=== PATIENT | male | born 1960 | race Caucasian/White ===

== ENCOUNTER 2022-09-24 17:14 | Emergency (ER) | payer MEDICAID, OTHER ==
[~2022-09-24] VITALS: Ht 165.1 cm; Wt 73.0 kg
[2022-09-24 17:31] VITALS: BP 126/78; PULSE 105; RESP 16; TEMP 99.3; O2SAT 92
[2022-09-24 19:36] LABS: BASOPHILS % 1.2 % (0.0-2.0); EOSINOPHILS % 0.5 % (0.0-5.0); HEMATOCRIT. 44.4 % (42.0-52.0); HEMOGLOBIN. 14.8 g/dL (14.0-18.0); LYMPHOCYTES % 27.4 % (20.0-50.0); MEAN CORPUSCULAR HEMOGLOBIN 31.8 pg (28.0-32.0); MEAN CORPUSCULAR VOLUME 95.1 fL (80.0-94.0); MEAN PLATELET VOLUME 9.1 fl (7.4-10.4); NEUTROPHILS % 61.9 % (40.0-76.0); PLATELET 208 x1000/uL (130-400); RED BLOOD CELL COUNT 4.67 mill/uL (4.7-6.1); RED CELL DISTRIBUTION WIDTH 15.7 % (11.6-14.6)
[2022-09-24 19:42] LABS: CHLORIDE 98 mEq/L (98-107)
[2022-09-24 20:52] LABS: ETHANOL BLOOD 300 mg/dL (-10)
== END 2022-09-24 20:59 | disposition left against medical advice (07) ==
LOC: ER 17:14
DX: S00.83XA Contusion of other part of head, initial encounter (principal); F10.229 Alcohol dependence with intoxication, unspecified; E11.9 Type 2 diabetes mellitus without complications; I10 Essential (primary) hypertension; W18.39XA Other fall on same level, initial encounter; Y93.89 Activity, other specified; Y92.89 Other specified places as the place of occurrence of the external cause; Y99.8 Other external cause status; Y90.8 Blood alcohol level of 240 mg/100 ml or more
CPT/HCPCS: 36415; 70486; 80053; 80320; 85025; 99284; G0480